=== PATIENT | male | born 1950 | race Hispanic/Latino ===

== ENCOUNTER 2019-12-13 06:33 | Observation (INO) | payer MEDICARE, OTHER ==
[2019-12-08 10:25] LABS: BASOPHILS % 0.5 % (0.0-1.0); EOSINOPHILS # (AUTO) 0.1 (0.0-0.4); EOSINOPHILS % 1.2 % (0.0-6.0); HEMATOCRIT 42.3 % (38.2-49.6); HEMOGLOBIN 14.2 g/dL (14.0-18.0); LYMPHOCYTES # (AUTO) 2.6 (1.0-3.2); MEAN CORPUSCULAR HEMOGLOBIN 33.1 pg (28-32); MEAN CORPUSCULAR HGB CONC 33.6 g/dL (31-35); MEAN CORPUSCULAR VOLUME 98.6 fL (81-99); MONOCYTES # (AUTO) 0.7 (0.2-0.8); MONOCYTES % 9.2 % (4.4-11.3); NEUTROPHILS # (AUTO) 4.1 (2.1-6.9); NEUTROPHILS % 54.7 % (38.7-80.0); PLATELET COUNT 261 x10e3/uL (140-360); RED BLOOD COUNT 4.29 x10e6/uL (4.3-5.7); RED CELL DISTRIBUTION WIDTH 11.7 % (11.7-14.4)
--- NOTE | 2019-12-08 11:19 | Diagnostic Imaging Report ---
EXAMINATION: CHEST 2 VIEWS INDICATION: Pre-operative COMPARISON: None FINDINGS: LINES/TUBES:None LUNGS:The lungs are well-inflated. No focal consolidation or pulmonary edema. PLEURA:No pleural effusion or pneumothorax. MEDIASTINUM:The cardiomediastinal silhouette appears normal in size and shape. BONES/SOFT TISSUES:No acute osseous injury. ABDOMEN:No free air under the diaphragm. IMPRESSION: No focal pneumonia or pulmonary edema. Signed by: Rodrigo Harris MD on 12/08/2019 11:16 AM
[~2019-12-13] VITALS: Ht 167.6 cm; Wt 91.2 kg
[~2019-12-13 06:33] MED LIST: LISINOPRIL10 MG PO; PRAVASTATIN SOD40 MG PO
[2019-12-13] MEDS ORDERED: CEFAZOLIN SOD 1 GM/NS 50ML 100 ML IV ONE (07:00)
[2019-12-13] MEDS ORDERED: GABAPENTIN 300 MG CAP ONE (07:00)
[2019-12-13] MEDS ORDERED: CELECOXIB 200 MG CAP ONE (07:00)
[2019-12-13] MEDS ORDERED: DEXAMETHASONE SOD PHOS 10 MG/1 ML VIAL ONE (07:02)
[2019-12-13] MEDS ORDERED: TRANEXAMIC ACID 1,000 MG/10 ML ML ONE (07:37)
[2019-12-13] MEDS ORDERED: SODIUM CHLORIDE 0.9% 500ML 500 ML ONE (07:37)
[2019-12-13] MEDS ORDERED: VANCOMYCIN HCL 1,000 MG ONE (07:37)
[2019-12-13] MEDS ORDERED: BACITRACIN 50,000 UNIT VIAL ONE (07:38)
[2019-12-13] MEDS ORDERED: ROPIVACAINE 246.25 MG, EPINEPHRINE HCL 1:1000 1ML 0.5 MG, CLONIDINE HCL 0.08 MG, KETORO... INJ ONE ×5 (08:00)
[2019-12-13] MEDS ORDERED: DOCUSATE SODIUM 100 MG CAP PO PRN (10:00)
[2019-12-13] MEDS ORDERED: HYDROCODONE/APAP 7.5MG-325MG 1 EA TAB PO PRN (10:00)
[2019-12-13] MEDS ORDERED: ONDANSETRON HCL INJ 2MG/ML 2ML 2 MG/ML VIAL IV PRN (10:00)
[2019-12-13] MEDS ORDERED: HYDROCODONE/APAP 5MG-325MG TAB PO PRN (10:00)
[2019-12-13] MEDS: SODIUM CHLORIDE 0.9% 1000ML 1,000 ML IV SCH ×3 (10:00→20:00)
[2019-12-13] MEDS ORDERED: KETOROLAC TROMETHAMINE 30 MG/ML VIAL IV PRN (10:00)
[2019-12-13] MEDS ORDERED: DIPHENHYDRAMINE HCL INJ 50 MG/ML VIAL IV PRN (10:00)
[2019-12-13] MEDS ORDERED: ACETAMINOPHEN 650 MG SUPP PR PRN (10:00)
[2019-12-13] MEDS ORDERED: MEPERIDINE HCL INJ 25 MG/ML VIAL ONE (10:11)
[2019-12-13] MEDS ORDERED: HYDROMORPHONE 2MG/ML 2 MG/ML ML ONE (10:15)
--- NOTE | 2019-12-13 10:39 | Diagnostic Imaging Report ---
Exam: Left knee radiographs-2 views History: Postoperative Comparison: None. Findings/Impression: Status post left total knee arthroplasty and patellar resurfacing with intact hardware. Alignment is unremarkable. No evidence of fracture. Overlying soft tissue edema, air, and skin jina, compatible with recent surgery. Signed by: Dr. Isael Herman MD on 12/13/2019 10:36 AM
--- OUTSIDE RECORDS SUMMARY | 2019-12-13 10:48 | XMS REPORT | Continuity of Care Document ---
Author Author [facility] Organization [facility] Address [address] [place] [address] [place] [id number] Phone Unavailable Care Team Providers Care Molecular Geneticist Name Role Phone WILNER HYATT Attphys Unavailable SONYA VORA Admphys Unavailable Problems This patient has no known problems. Allergies, Adverse Reactions, Alerts This patient has no known allergies or adverse reactions. Medications This patient has no known medications. Procedures This patient has no known procedures. Results Test Description Test Time Test Comments Results Result Comments Source KNEE LEFT 1-2 VIEWS 2019-12-13 10:33:[address] [address] Patient Name: GHISLAINE HERNANDEZ MR #: [id number] : 1950 Age/Sex: 69/M Req #: [id number] Adm Physician: Ordered by: WILNER HYATT MD Report #: [id number] Location: OR Room/Bed: Procedure: [id number] DX/KNEE LEFT 1-2 VIEWS Exam Date: 12/13/19 Exam Time: 0950 REPORT STATUS: Signed Exam: Left knee radiographs-2 views History: Postoperative Comparison: None. Findings/Impression: Status post left total knee arthroplasty and patellar resurfacing with intact hardware. Alignment is unremarkable. No evidence of fracture. Overlying soft tissue edema, air, and skin jina, compatible with recent surgery. Signed by: Dr. Samina Richards MD on 12/13/2019 10:36 AM Dictated By: SAMINA RICHARDS MD 1036 Transcribed By: STU on 12/13/191035 COPY TO: WILNER HYATT MD CHEST 2 VIEWS 2019-12-08 11:15:00 [place] [address] Patient Name: GHISLAINE HERNANDEZ MR #: [id number] : 1950 Age/Sex: 69/M Req #: [id number] Adm Physician: Ordered by: WILNER HYATT MD Report #: [id number] Location: OR Room/Bed: Procedure: [id number] DX/CHEST 2 VIEWS Exam Date: 12/08/19 Exam Time: 1050 REPORT STATUS: Signed EXAMINATION: CHEST 2 VIEWS INDICATION: Pre-operative COMPARISON: None FINDINGS: LINES/TUBES:None LUNGS:The lungs are well-inflated. No focal consolidation or pulmonary edema. PLEURA:No pleural effusion or pneumothorax. MEDIASTINUM:The cardiomediastinal silhouette appears normal in size and shape. BONES/SOFT TISSUES:No acute osseous injury. ABDOMEN:No free air under the diaphragm. IMPRESSION: No focal pneumonia or pulmonary edema. Signed by: Carloz Thornton MD on 12/08/2019 11:16 AM Dictated By: CARLOZ THORNTON MD 1116 Transcribed By: STU on 12/08/191115 COPY TO: WILNER HYATT MD
--- NOTE | 2019-12-13 11:04 | NUR ---
PT ARRIVED TO ROOM 110; PT AWAKE, ALERT, NO SIGNS OF DISTRESS.
[2019-12-13 11:05] VITALS: BP 109/83
[2019-12-13] MEDS ORDERED: ACETAMINOPHEN 1000 MG/100 ML IV PRN (12:00)
--- NOTE | 2019-12-13 12:15 | NUR ---
PT TOLERATING PO AFTER LUNCH. WILL S/L IV.
--- NOTE | 2019-12-13 12:23 | Operative Report ---
DATE OF PROCEDURE: 12/13/2019 SURGEON: Connor Martinez MD DEAN: Matt Carbajal, certified PA. PREOPERATIVE DIAGNOSIS: Osteoarthritis, left knee. POSTOPERATIVE DIAGNOSIS: Osteoarthritis, left knee. PROCEDURE: Left total knee arthroplasty. INDICATIONS: The patient is a 69-year-old gentleman, who has end-stage arthritis of his left knee. He has failed conservative management and would like to proceed with a left total knee replacement. The risks and benefits of the procedure have been discussed at length. All of his questions have been answered. He states he understands and wishes to proceed. PROCEDURE IN DETAIL: The patient was brought to the operating room and placed under general anesthetic. He received prophylactic antibiotics, a regional block and tranexamic acid in the holding area. His left lower extremity was prepped and draped in a sterile manner. A preoperative time-out was performed. The extremity was exsanguinated and a proximal tourniquet was inflated to 300 mmHg. An anterior incision with a medial parapatellar arthrotomy was performed. Clear synovial fluid was removed from the joint. Soft tissue releases were performed to bring the knee up into flexion with the patella everted. Meniscal remnants and marginal osteophytes were excised. The cruciate ligaments were sacrificed. A Lira and NephSueEasy Knee System was used throughout the case. Ultracongruent tibial inserts were used. An extramedullary cutting guide was used to resect the proximal tibia. The slope was dialed in to match the existing slope. The tibial base plate was a size #6. The central fin punch was impacted and attention was directed towards the distal femur. An intramedullary cutting guide was used to resect the distal femur in 5 degrees of valgus and rotation referencing off a combination of landmarks including Whitesides line, the epicondylar axis, and the posterior condyles. The femoral component was also a size 6. The anterior and posterior cuts were made. A trial reduction was performed. A 9 mm ultracongruent tibial insert provided appropriate soft tissue balancing in full extension and 90 degrees of flexion. The patella was then resurfaced with a 35 mm x 7.5 mm patellar button. The thickness was checked before and after resurfacing and was right at 24 mm. Patellar tracking was noted to be concentric. The trial implants were then all removed. A 100 mL premixed pericapsular ANDI injection was placed into the surrounding soft tissue. The knee was thoroughly irrigated with a shower tip pulsatile lavage. All bone cuts had been irrigated with a spray mixture of diluted polymyxin and vancomycin spray. The components were then cemented into place using a single mix of high viscosity Biomet cement preloaded with antibiotics. Care was taken to remove extravasated cement. The wound was further irrigated while the cement cured. The arthrotomy was then closed with interrupted #1 Ethibond. The knee was put through flexion and extension to ensure a secure closure. The skin was closed with subcuticular Vicryl and jina. A sterile bandage was applied. He was extubated and transported to the recovery room in stable condition. Blood loss was minimal. All needle and sponge counts were correct. Connor Martinez MD DR/KEMAR /[id number]
[2019-12-13 13:26] VITALS: BP 128/70
[2019-12-13] MEDS ORDERED: EPINEPHRINE HCL 1:1000 1ML 1 MG/ML AMP ONE (14:41)
[2019-12-13] MEDS ORDERED: BUPIVACAINE 0.25% 30ML SDV INJ ONE (14:41)
[2019-12-13 16:49] VITALS: BP 116/68
[2019-12-13] MEDS: CEFAZOLIN SOD 1 GM/NS 50ML 50 ML IV SCH ×2 (17:06→23:23)
[2019-12-13] MEDS: CELECOXIB 100 MG CAP PO SCH (17:07)
[2019-12-13] MEDS: ASPIRIN 325 MG TAB PO SCH (17:07)
--- NOTE | 2019-12-13 19:20 | NUR ---
RECEIVED REPORT FROM PREVIOUS NURSE. CALL LIGHT WITHIN REACH. PATIENT IN BED.
[2019-12-13 20:00] VITALS: BP 126/84
[2019-12-13] MEDS ORDERED: DEXAMETHASONE SOD PHOS INJ 4 MG/ML VIAL ONE (20:17)
[2019-12-13] MEDS ORDERED: ETOMIDATE 2 MG/ML 10 ML INJ IV ONE (20:17)
[2019-12-13] MEDS ORDERED: SEVOFLURANE INHAL SOLN 250 ML PEN BTL ONE (20:17)
[2019-12-13] MEDS ORDERED: ONDANSETRON HCL INJ 2MG/ML 2ML 2 MG/ML VIAL ONE (20:17)
[2019-12-13] MEDS ORDERED: PROPOFOL IV EMULSION 10 MG/ML 20 ML VIAL ONE (20:17)
[2019-12-13] MEDS ORDERED: ZOLPIDEM TARTRATE 5 MG TAB PO PRN (21:00)
[2019-12-14] VITALS: BP 133/80
[2019-12-14 04:00] VITALS: BP 145/74
[2019-12-14] MEDS: SODIUM CHLORIDE 0.9% 1000ML 1,000 ML IV SCH (04:50)
[2019-12-14 05:16] LABS: HEMATOCRIT 33.8 % (38.2-49.6); HEMOGLOBIN 11.6 g/dL (14.0-18.0)
--- NOTE | 2019-12-14 05:32 | Consultation ---
DATE OF CONSULTATION: REASON FOR CONSULTATION: Postop medical management. HISTORY OF PRESENT ILLNESS: The patient is a 69-year-old gentleman who is status post left knee arthroplasty for end-stage osteoarthritis. He is doing very well postoperatively with minimal pain and denies any fever, chills, nausea, vomiting, headache, shortness of breath, or dizziness on review of systems. PAST MEDICAL HISTORY: Hypertension and hyperlipidemia. MEDICATIONS: Lisinopril 20 mg a day. Pravastatin 40 mg a day. ALLERGIES: NONE. SOCIAL HISTORY: Nonsmoker, nondrinker. Retired. Lives in his home with his . FAMILY HISTORY: Noncontributory. PHYSICAL EXAMINATION: VITAL SIGNS: Temperature 98.0, pulse 63, blood pressure 133/80, and sats 99% on room air. GENERAL: In no apparent distress, lying in bed. NECK: Supple no lymphadenopathy. CARDIOVASCULAR: Regular rate and rhythm. LUNGS: Clear to auscultation bilaterally. ABDOMEN: Good bowel sounds. Soft and nontender. EXTREMITIES: No clubbing or cyanosis. NEUROLOGIC: Nonfocal. Moves all extremities x4. ASSESSMENT AND PLAN: 1. Anemia check a CBC. 2. Left knee pain, continue with postoperative care and physical therapy. 3. Hypertension. Continue to monitor. 4. Hyperlipidemia. We will restart his cholesterol medicines at discharge. Please see hospital chart for full details. MD ARNALDO Blake/KEMAR /[id number]
--- NOTE | 2019-12-14 07:15 | NUR ---
GAVE BEDSIDE SHIFT REPORT TO ONCOMING NURSE. CALL LIGHT WITHIN REACH. PATIENT IN BED. HOURLY ROUNDING PERFORMED. CPM AT 55
--- NOTE | 2019-12-14 07:16 | NUR ---
BEDSIDE SHIFT REPORT RECEIVED FROM PM NURSE. PT IN STABLE CONDITION.
[2019-12-14 07:32] VITALS: BP 141/76
[2019-12-14 07:49] VITALS: BP 141/76
--- NOTE | 2019-12-14 08:21 | NUR ---
DR RAMAN OFFICE PREARRANGED FOLLOWING DISCHARGE PLAN OF:[address] [facility], [place], [facility] [id number] HOME HEALTH WITH HOME CARE PROVIDERS CONFIRMED WITH [employer] [phone] DME 3 IN ONE COMMODE, CPM AND ROLLING WALKER WITH WHEELS PROVIDED BY [employer] [phone] ARIEL SIGNED AND ON CHART COPY LEFT WITH PATIENT GAVE CARD FOR QUESTIONS AND OR CONCERNS.
--- NOTE | 2019-12-14 08:40 | NUR ---
pt take off CPM; tolerated well.
[2019-12-14] MEDS: CEFAZOLIN SOD 1 GM/NS 50ML 50 ML IV SCH (09:00)
[2019-12-14] MEDS ORDERED: LISINOPRIL 20 MG TAB PO SCH (09:00)
[2019-12-14] MEDS: CELECOXIB 100 MG CAP PO SCH (09:01)
[2019-12-14] MEDS: ASPIRIN 325 MG TAB PO SCH (09:01)
[2019-12-14 11:27] VITALS: BP 149/83
[2019-12-14] MEDS ORDERED: ONDANSETRON HCL 4 MG ORAL DISINTEGRATING TAB PO PRN (12:57)
[2019-12-14] MEDS ORDERED: PRAVASTATIN 20 MG TAB PO SCH (21:00)
== END 2019-12-14 12:57 | disposition home health service (06) ==
LOC: OR 06:33 → PACU V 09:52 → MED/SURG 11:03
PROVIDERS: ADMIT Specialist; ATTEND Specialist
DX: M17.0 Bilateral primary osteoarthritis of knee (principal); I10 Essential (primary) hypertension; Z01.812 Encounter for preprocedural laboratory examination; Z11.59 Encounter for screening for other viral diseases; D64.9 Anemia, unspecified; E78.5 Hyperlipidemia, unspecified
CPT/HCPCS: 27447; 36415 ×3; 71046; 73560; 85014; 85018; 85025; 86850; 86900; 93005; 97110; 97116 ×2; 97161; C1713 ×5; C1776 ×2; G0378 ×2; J0171; J0690 ×2; J1100 ×2; J1170; J1885; J2175; J2405; J2704; J2795; J3370; J7030; J7040; U0002; 86920